=== PATIENT | male | born 1930 | race Caucasian/White ===

== ENCOUNTER → 2018-10-19 | Outpatient (CLI) | payer BC ==
--- NOTE | 2018-10-20 13:04 | XR ---
Lumbar spine HISTORY: Muscle weakness, low back pain 3 views of the lumbar spine correlated to prior exam 04/17/2017 Bone mineralization is reduced. Loss of disc height is greatest at L5-S1 with associated vacuum pheno donavan, progression of loss of disc height L4-5, stable loss of height at the remaining levels. Ever listhesis grade 1 again noted at L3-4, L4-5. Lumbar vertebral bodies show preserved height. Sclerosis present in the posterior elements is compatible with facet arthropathy change. Dense vascular calcif ications are present. Spinal curvature is stable. Small focal density superimposed over the right L1 transverse process is stable, probable vascular calcifications in the pelvis. IMPRESSION: Degenerative disc disease, facet arthropathy, spinal curvature, osteopenia and spondyloli sthesis.
== END | disposition home or self-care (01) ==
LOC: RADXRYALE 16:50
PROVIDERS: ATTEND Family Medicine
DX: M43.16 Spondylolisthesis, lumbar region (principal); M51.36 Other intervertebral disc degeneration, lumbar region; M46.96 Unspecified inflammatory spondylopathy, lumbar region; M85.88 Other specified disorders of bone density and structure, other site; M62.81 Muscle weakness (generalized)
CPT/HCPCS: 72100